=== PATIENT | male | born 2000 | race Caucasian/White ===

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

== ENCOUNTER → 2018-03-15 | Outpatient (REF) | payer OTHER | LOC: M SFHCLERA 12:20 | DX: J02.9 Acute pharyngitis, unspecified (principal) ==